=== PATIENT | female | born 1965 | race Caucasian/White ===

== ENCOUNTER 2017-04-23 21:28 | Emergency (ER) | payer OTHER ==
[~2017-04-23] VITALS: Ht 162.6 cm; Wt 95.5 kg
[2017-04-23 22:05] LABS: HEMATOCRIT 37.7 % (36.0-46.0); MCHC 32.6 G/DL (30.0-36.0); MCV 82.9 FL (83-99); MEAN PLAT.VOLUME 9.3 uM^3 (9.5-12.4); PLATELET COUNT 299 K/uL (156-360); RBC DIS.WIDTH-CV 13.6 % (11.8-14.6); RBC DIS.WIDTH-SD 41.1 % (39-53); RED BLOOD COUNT 4.55 M/uL (3.80-5.20)
[2017-04-23 22:16] LABS: CHLORIDE 107 mEq/L (99-109); POTASSIUM 3.7 mEq/L (3.7-5.4); SODIUM 138 mEq/L (136-147)
[2017-04-23 22:19] LABS: GLUCOSE 113 mg/dL (70-99)
[2017-04-23 22:20] LABS: ANION GAP 8 MEQ/L (2-14)
[2017-04-23 22:21] LABS: TOTAL BILIRUBIN 0.2 mg/dL (0.0-1.0)
[2017-04-23 22:22] LABS: ALKALINE PHOSPHATASE 73 IU/L (3-129); GFR ESTIMATE (CALCULATED) > 59 mL/min/
[2017-04-23 22:23] LABS: UREA NITROGEN (BUN) 16 mg/dL (9-23)
[2017-04-23 22:26] LABS: LIPASE 22 U/L (1.0-51.0)
[2017-04-23 22:38] LABS: QUANTITATIVE HCG < 4.0 MIU/ML
[2017-04-24 02:29] LABS: ADD MIUA? YES; BILIRUBIN NEGATIVE; BLOOD SMALL; COLOR YELLOW ((YELLOW)); GLUCOSE (STRIP) NEGATIVE; KETONES NEGATIVE; LEUKOCYTES TRACE; NITRITE NEGATIVE; PROTEIN (STRIP) NEGATIVE; SPECIFIC GRAVITY 1.017 (1.000-1.030); UROBILINOGEN 0.2 MG/DL (0.2-1.0)
[2017-04-24 02:46] LABS: BACTERIA RARE /HPF; EPITHELIAL CELLS RARE /HPF; MUCUS TRACE /LPF; RED BLOOD CELLS 0-5 /HPF (0-5); UCUL ADDED? NO; WHITE BLOOD CELLS 0-5 /HPF (0-5)
[2017-04-24 03:30] VITALS: BP 115/92
== END 2017-04-24 03:31 | disposition home or self-care (01) ==
LOC: EME 21:28
DX: R10.11 Right upper quadrant pain (principal); R31.9 Hematuria, unspecified; R11.2 Nausea with vomiting, unspecified; M54.9 Dorsalgia, unspecified
CPT/HCPCS: 74176; 76705; 80053; 81003; 83690; 84702; 85027; 99281; 99285; J2270; J2405; J7030